=== PATIENT | male | born 1945 | race African-American/Black ===

== ENCOUNTER → 2017-07-29 07:47 | Outpatient (CLI) | payer MEDICARE | END | disposition home or self-care (01) | LOC: D.ECHO 07-25 13:00 → D.RT 07-25 13:30 → D.LAB 07-25 14:30 → D.RAD 07-25 14:45 → D.RT 07:47 | DX: J90 Pleural effusion, not elsewhere classified (principal) ==

== ENCOUNTER 2017-08-06 11:11 | Inpatient (IN) | payer MEDICARE ==
[2017-08-06] MEDS ORDERED: AMOXICILLIN500 M1 PO (11:41)
--- NOTE | 2017-08-06 11:41 | NUR ---
RECIEVED PT VIA WHEELCHAIR ACCOMPANIED BY HOSPTIAL STAFF AND FAMILY MEMBERS. PT IS VERY WEAK. ALERT AND ORIENTED. TRACH WITH TRACH COLLAR SEEN, PER ISADORA WADE PT IS SUPPOSE TO HAVE THAT REMOVED TODAY BY DR. CALDWELL. RESERVE LEFT ARM FOR AVF. RIGHT CHEST HEMOSPLIT SEEN FOR DIALYSIS. ON ROOM AIR. NO IV ACCESS CURRENTLY. ISADORA WADE, DELIVERY MAN AND I ASSISTED PT INTO HOSPTIAL GOWN. PLACED YELLOW ARM BAND ON PT (DUE TO WEAKNESS) AND NON-SKID SOCKS. ISADORA WADE, DELIVERY MAN IN ROOM NOW ADMITTING PT PER POLICY. WILL CONTINUE TO MONITOR AND AWAIT NEW ORDERS.
[2017-08-06] MEDS ORDERED: BUMEX 1 MG TAB1 MG PO (11:42)
[2017-08-06 11:52] VITALS: BP 140/78; BMI 27.5
--- NOTE | 2017-08-06 11:56 | NUR ---
CALLED DR. BLUE OFFICE AND SPOKE WITH SKYLA. INFORMED SKYLA THAT THIS PT IS HERE AND THAT PT WAS SUPPOSE TO HAVE APPT TODAY WITH DR. CALDWELL TO REMOVE TRACH TODAY. SKYLA STATES SHE WILL LET DR. CALDWELL KNOW.
[2017-08-06 12:34] VITALS: BP 140/78
--- NOTE | 2017-08-06 14:49 | NUR ---
THIS NURSE CHANGED PTS DRESSING TO RIGHT CHEST HEMOSPLIT. ATTEMPTED TO SITE PT WITH IV CATHETER TO RIGHT AC X1 STICK THAT WAS NOT SUCCESSFUL. GILBERT BANSAL ATTEMPTED TO LOOK FOR IV SITE BUT COULD NOT FIND ANYTHING. СЕРГЕЙ RAMIREZ, VASCULAR ACCESS NURSE CALLED. WILL CALL AGAIN AND SEE ABOUT GETTING PT SITED.
--- NOTE | 2017-08-06 15:20 | NUR ---
GILBERT GARDNER STATES СЕРГЕЙ VASCULAR ACCESS NURSE WILL BE ON UNIT SHORTLY TO SITE PT WITH IV CATHETER.
--- NOTE | 2017-08-06 16:42 | NUR ---
Dialysis Coordinator: [facility]: JERAMY Montiel Fri/Fri/Fri @ 6:00. IVAN GUEVARA.
--- NOTE | 2017-08-06 17:55 | NUR ---
PT IS CURRENTLY SITTING UP AT BEDSIDE. IS ASSISTING PT WITH DINNER. PTS STATES SHE BROUGHT PTS HOME MEDICATIONS TO FLOOR SO THEY CAN BE PUT IN SYSTEM TO BE REVIEWED BY DOCTOR. INFORMED TO LET ME KNOW WHEN PT IS DONE EATING AND I WILL LOOK OVER MEDICATIONS AND PUT IN SYSTEM.
--- NOTE | 2017-08-06 18:23 | NUR ---
1530- СЕРГЕЙ RAMIREZ, VASCULAR ACCESS NURSE INSERTED IV CATHETER TO PTS RIGHT AC.
[2017-08-06 19:00] VITALS: BP 166/79
[2017-08-06] MEDS ORDERED: RENVELA800 MG PO (19:58)
[2017-08-06] MEDS ORDERED: BACTRIM DS TABL1 TAB PO (19:59)
[2017-08-06] MEDS ORDERED: BUMEX2 MG PO (20:00)
[2017-08-06] MEDS ORDERED: ULTRAM50 MG PO (20:00)
[2017-08-06] MEDS ORDERED: NEPHRO-VITE RX1 TAB PO (20:01)
[2017-08-06] MEDS ORDERED: ISOSORBIDE DINI20 MG PO (20:02)
[2017-08-06] MEDS ORDERED: ZYLOPRIM100 MG PO (20:02)
[2017-08-06] MEDS ORDERED: ROBAXIN-750750 MG PO ×2 (20:03→20:04)
[2017-08-06] MEDS ORDERED: ASPIRIN325 MG PO (20:04)
[2017-08-06] MEDS ORDERED: ROCALTROL0.25 MCG PO (20:05)
[2017-08-06] MEDS ORDERED: HYDRALAZINE HCL10 MG PO (20:06)
--- NOTE | 2017-08-06 23:52 | NUR ---
NURSE ROUNDS 21:00 - PT SITTING ON SIDE OF BED, DEMONSTRATES GENERALIZED WEAKNESS. PT AND PTS BOTH STATE THAT PT SLEEPS IN THE DEPENDENT POSITION WITH HIS LEGS HANGING DOWN R/T PTS BILATERAL CHRONIC LEG PAIN AND CHRONIC BACK PAIN. I SPOKE WITH NUHA MANLEY, PLACEMENT SECRETARY FOR RENAL, TO GET ORDER FOR PTS PRN TRAMADOL PER PT REQUEST. NO OTHER NEEDS AT THIS TIME. BED ALARM IS ON, PT IS TO CALL WHEN NEEDING ANY ASSISTANCT, AND HAS BEEN INSTRUCTED THAT HE CANNOT GET UP UNASSISTED R/T HIS WEAKNESS. PT HAS VERBALLY AGREED TO DO SO, EVEN THOUGH HE STATES HE DOES NOT NEED ANY ASSISTANCE. IS STAYING WITH PT TONIGHT. CONTINUE TO MONITOR PT CLOSELY. BED LOW, CALL LIGHT IN REACH, SIDE RAILS X 2,
[2017-08-07 04:21] VITALS: BP 153/88
[2017-08-07 05:05] LABS: BASOPHILS 0.3 % (0-2); EOSINOPHILS 2.3 % (0-7); HEMATOCRIT 39.4 % (42.0-54.0); HEMOGLOBIN 12.5 g/dL (13.5-17.5); IMMATURE GRANULOCYTES 0.3 % (0-5); MCH 29.3 pg (26.0-34.0); MCHC 31.7 g/dL (31.0-37.0); MCV 92.5 fL (80.0-100.0); MEAN PLATELET VOLUME 11.4 fL (7.4-10.4); MONOCYTES 17.6 % (2-11); NEUTROPHILS 45.5 % (40-80); PLATELET COUNT 208 10x3/uL (130-400); RBC 4.26 10x6/uL (4.20-6.10); RDW 18.1 % (11.5-14.5)
[2017-08-07 05:24] LABS: CALCIUM 9.5 mg/dL (8.5-10.1); CARBON DIOXIDE 26.3 mmol/L (21.0-32.0); CREATININE - SERUM 8.9 mg/dL (0.6-1.3); PHOSPHOROUS 8.7 mg/dL (2.5-4.9); POTASSIUM - SERUM 4.3 mmol/L (3.5-5.1)
--- NOTE | 2017-08-07 06:03 | NUR ---
PT RESTING SITTING ON SIDE OF BED, SLEEPING IN CHAIR AT BEDSIDE. CONTINUE TO MONITOR CLOSELY. BED LOW, CALL LIGHT IN REACH, SIDE RAILS X 1.
--- NOTE | 2017-08-07 07:55 | NUR ---
AM ROUNDS - PT IN BED AND AWAKE AT THIS TIME. SON AT BEDSIDE. SR UP X2. BED AT LOWEST POSITION. CALL HILTON IN USE/REACH. MONITOR SHOWING UNCONT AFIB, HR 125. IV TO LEFT FA, D5NS AT 30CC/HR. NO NEEDS AT THIS TIME. WILL CONTINUE TO MONITOR
--- NOTE | 2017-08-07 07:58 | NUR ---
AM ROUNDS - PT IN BED AND AWAKE AT THIS TIME. PT C/O GENERAL PAIN 08/10. AT BEDSIDE. BED AT LOWEST POSITION. SIDE RAILS UP X2. CALL HILTON IN USE/REACH. PT IS A LEFT ARM RESERVE, AVF. RIGHT CHEST HEMOSPLIT. JOHN BURGOS, SL. WILL ONTINUE TO MONITOR
[2017-08-07 08:00] VITALS: BP 123/60
[2017-08-07 09:49] VITALS: BMI 28.3
--- NOTE | 2017-08-07 11:43 | HP ---
PATIENT: ISAIAS KEANE MEDICAL RECORD: [id number] ACCOUNT: [id number] LOCATION:[facility] D.2104 : 46 ADMISSION DATE: 08/06/17 HISTORY AND PHYSICAL EXAMINATION DATE OF ADMISSION: 08/06/2017 HISTORY OF PRESENT ILLNESS: The patient is a 72-year-old -Scottish male with a history of ESRD secondary to diabetes mellitus and was started on hemodialysis since March of this year. He was initially started on hemodialysis at [facility] in March when he was admitted for acute renal failure and plasma cell dyscrasia. He had a hemodialysis catheter placed at that time. He later had a left forearm AV fistula created by Dr. Cartagena in May 2017, which we have been using on hemodialysis. The patient has been seen by Dr. Hogan in the past for plasma cell dyscrasia on a bone marrow biopsy with 10% plasma cells due to chronic elevation of light chains. He also was seen by Dr. Hogan due to anemia and was on Epogen in his clinic. The patient also has a medical history of diabetes, congestive heart failure, hypertension and obstructive sleep apnea with a tracheostomy. Dr. Danielson with pulmonology follows his trach. Last week, the patient complained of numbness in both hands, which had been progressively worsening over the last 2 weeks. It was thought to be from possible neuropathy. However, this week, the patient complains of weakness in his legs causing difficulty standing and walking. He denies any headache or vision changes, but does complain of some neck pain. No known history of any strokes in the past, weakness is not worse on the left or right, is generally equal on both sides bilaterally. We are admitting him today for weakness of the lower extremities and to rule out CVA and ESRD. The patient may need a neurology or neurosurgery consult. PAST MEDICAL HISTORY: 1. ESRD, dialysis initiated in March [address] with a Hem[address]Split catheter. Dr. Cartagena placed a left forearm AV fistula in May 2017. 2. Congestive heart failure. 3. Diabetes mellitus. 4. Hypertension. 5. History of acute respiratory failure with pneumonia. 6. Osteoarthritis of the knee. 7. Obstructive sleep apnea with a tracheostomy tube. 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 Hogan PAST SURGICAL HISTORY: 1. Percutaneous gastrostomy. 2. Tracheostomy. 3. ORIF, lower extremity leg fracture. 4. HemoSplit catheter by Dr. Ware in March 2017. FAMILY HISTORY: No known family history of any kidney disease or respiratory disease. SOCIAL HISTORY: Denies ever smoking in the past and does not currently smoke. Denies any alcohol or illicit drug use. CURRENT MEDICATIONS: Renvela 800 mg 3 tabs t.i.d. with meals, Bumex 2 mg p.o. on nondialysis days, Imdur 10 mg p.o. b.i.d.; metoprolol 50 mg half a tab HISTORY AND PHYSICAL [id number] ISAIAS KEANE b.i.d., hold before dialysis; codeine cough syrup q.6 p.r.n., Venofer 50 mg IV push weekly with dialysis, Epogen 7400 units IV push 3 times a week with dialysis. ALLERGIES: No known drug allergies. REVIEW OF SYSTEMS: Positive for weakness in the lower extremities, also with numbness. The patient has numbness in his hands, difficulty standing and walking, positive for neck pain. The patient has a tracheostomy tube with chronic cough. All other review of systems negative. PHYSICAL EXAMINATION: VITAL SIGNS: Stable. GENERAL: Adult male, in no acute distress. HEAD: Normocephalic and atraumatic. EYES: Pupils are equal, round and react to light and accommodation. ENT: Oropharynx is clear. No erythema, no exudate. NECK: Supple. No lymphadenopathy. Tracheostomy intact with trach collar. HEART: Regular rate and rhythm. No murmur, rub or gallop. LUNGS: Clear bilaterally. No wheezes, rales or crackles. ABDOMEN: Soft, nontender, active bowel sounds times 4. EXTREMITIES: No amputations or deformities. Numbness noted in bilateral lower extremities and hands, some edema noted in the left hand, +1 edema in lower extremities. Left arm AV fistula positive thrill and bruit. ASSESSMENT AND PLAN: 1. Lower extremity weakness and numbness. The patient states this started yesterday and has continued to get worse. Last week, his hands began to get numb. He complains of numbness in his hands in the past. He has never had a cerebrovascular accident or transient ischemic attack in the past. Weaknesses is not unilateral, it is bilateral. No difficulty speaking, no slurred speech. The patient does complain of some neck pain. No recent injuries. We will check a CT of the head and C-spine, may also need to check L-spine as well. The patient will likely need neurology consult depending on test, may need neurosurgery consult as well. 2. End-stage renal disease. Continue hemodialysis 3 times a week. 3. Hypertension. Continue oral antihypertensive meds. 4. Renal osteodystrophy. Continue renal diet and binders with meals. 5. Diabetes mellitus. We will check blood sugars a.c. and h.s., cover with sliding scale as needed. TRANSINT:[id number] Voice Confirmation ID: [id number] DOCUMENT ID: [id number] Dictated By: NUHA MANLEY I have interviewed/examined the above patient and agree with these documented findings. HISTORY AND PHYSICAL [id number] ISAIAS KEANE DAVID MD at 1143 at 1125 CC: [id number] DICTATION DATE: 08/06/17 1121 COMPUTER NETWORKING INSTRUCTOR ADJUNCT: 08/06/[address] [facility] [address] [place] [address]
[2017-08-07 12:00] VITALS: BP 128/83
[2017-08-07 16:00] VITALS: BP 132/61
--- NOTE | 2017-08-07 16:07 | NUR ---
PLACED SCD IN PT'S ROOM. OT DOES NOT WANT TO PUT THEM ON AT THIS TIME.
--- NOTE | 2017-08-07 16:54 | NUR ---
Patient Name: ISAIAS KEANE Admission Status: Urgent Accout number: [id number] Admission Date: 08-06-2017 : 1945 Admission Diagnosis:WEAKNESS Attending: MALINI LAWRENCE Current LOS: 1 Anticipated DC Date: Planned Disposition: Home with Home Health Primary Insurance: MEDICARE A & B PLANNED EXTERNAL PROVIDER: [facility] Discharge Planning Comments: * Is the patient Alert and Oriented? Yes 0 * How many steps to enter\exit or inside your home? 5 0 * PCP DR. ORELLANA, [facility] 0 * Pharmacy MD MAIL ORDER OR [facility] ON [address] 0 * Preadmission Environment Home with Family 0 * ADLs Independent 0 * Equipment Oxygen 0 * Other Equipment HOME AND PORTABLE OXYGEN FROM A COMPANY IN [place] 0 * List name and contact numbers for known caregivers / representatives who currently or will assist patient after discharge: GIACOMO GARCIA, GIRLFRIEND, 0 * Community resources currently utilized Other 0 * Please name any agencies selected above. OUTPATIENT DIALYSIS, M/W/F, 0630AM, [facility], GIRLFRIEND DRIVES 0 * Additional services required to return to the preadmission environment? No 0 * Can the patient safely return to the preadmission environment? Yes 0 * Has this patient been hospitalized within the prior 30 days at any hospital? No 0 CM RECEIVED HOME HEALTH ORDER, MET WITH PT IN ROOM TO DISCUSS DISCHARGE PLANNING AND NEEDS. PT REPORTS LIVING AT HOME INDEPENDENTLY WITH HIS GIRLFRIEND. PT HAS HOME AND PORTABLE OXYGEN FROM A COMPANY IN [place]. PT HAS NO OUTSIDE SERVICES ASSISTING IN THE HOME. PT GOES TO DIALYSIS MWF, [address] [facility], HIS GIRLFRIEND DRIVES. CM DISCUSSED AVAILABILITY OF HOME HEALTH, REHAB SERVICES AND MEDICAL EQUIPMENT. PT WILL ACCEPT HOME HEALTH, CHOSE [facility], CHOICE SIGNED, REPORTS GIRLFRIEND WILL PICK HIM UP FOR DISCHARGE HOME. PT'S GIRLFRIEND REPORTS SOMEONE FROM THE BUSINESS OFFICE HAS TALKED TO PT ABOUT MEDICAID MEDICARE DOES NOT COVER THE ENTIRE BILL; [facility]. CM EXPLAINED THAT PT WILL NEED TO CONSENT TO [facility] TRANSFER FOR [facility] TO [facility] ANY PART OF THE BILL; CM OFFERED TO CALL THE [facility] AND PLACE PT ON THE TRANSFER LIST. PT REPORTS HE HAS BEEN THERE ONCE AND DOES NOT WANT CM TO PLACE PT ON THE [facility] CM CALLED [facility], PROVIDED REFERRAL TO [place], ; CM FAXED REFERRAL TO [facility] AT [phone]. FOR DISCHARGE WITH HOME HEALTH, NOTIFY [facility], , FAX DISCHARGE INFORMATION TO [facility] AT [phone]. Tax Economist: Abilio Gaona
[2017-08-07 19:00] VITALS: BP 146/77
[2017-08-08] VITALS: BP 101/66
--- NOTE | 2017-08-08 00:46 | NUR ---
FORESTRY HUNTER AT BEDSIDE TO OBTAIN VITALS, CALL LIGHT IN REACH. WILL CONTINUE WITH PLAN OF CARE.
[2017-08-08 04:00] VITALS: BP 122/69
[2017-08-08 04:55] LABS: BASOPHILS 0.1 % (0-2); EOSINOPHILS 2.6 % (0-7); HEMATOCRIT 38.1 % (42.0-54.0); HEMOGLOBIN 12.2 g/dL (13.5-17.5); IMMATURE GRANULOCYTES 0.1 % (0-5); LYMPHOCYTES 25.5 % (15-50); MCH 29.4 pg (26.0-34.0); MCV 91.8 fL (80.0-100.0); MEAN PLATELET VOLUME 11.3 fL (7.4-10.4); MONOCYTES 13.6 % (2-11); NEUTROPHILS 58.1 % (40-80); PLATELET COUNT 234 10x3/uL (130-400); RBC 4.15 10x6/uL (4.20-6.10); RDW 17.8 % (11.5-14.5); WBC 7.8 10x3/uL (4.8-10.8)
[2017-08-08 05:22] LABS: ANION GAP 22.3 mmol/L (8-16); CALCIUM 9.5 mg/dL (8.5-10.1); CARBON DIOXIDE 23.9 mmol/L (21.0-32.0); POTASSIUM - SERUM 4.2 mmol/L (3.5-5.1)
[2017-08-08 05:33] LABS: CREATININE - SERUM 11.7 mg/dL (0.6-1.3); PHOSPHOROUS 10.5 mg/dL (2.5-4.9)
[2017-08-08 08:00] VITALS: BP 127/73
--- NOTE | 2017-08-08 08:13 | NUR ---
AM ROUNDS - PT IN BED C/O PAIN 9/10 IN SHOULDERS AND ARMS. AT BEDSIDE. RIGHT CHEST HEMO FOR DIALYSIS. RESERVE LEFT ARM, AVF. BED AT LOWEST POSITION. CALL HILTON IN USE/REACH. SIDE RAILS UP X2. WILL CONTINUE TO MONITOR
[2017-08-08 12:00] VITALS: BP 115/76
[2017-08-09] VITALS (8 sets, daily range): BP systolic 117–149; BP diastolic 51–78
--- NOTE | 2017-08-09 00:12 | NUR ---
ASSESSMENT UNCHANGED. VSS, AFEBRILE. RESP EVEN UNLABORED. NO NEEDS VOICED. WILL CONT TO MONITOR.
[2017-08-09 06:24] LABS: BASOPHILS 0 % (0-2); EOSINOPHILS 0 % (0-7); HEMATOCRIT 38.6 % (42.0-54.0); HEMOGLOBIN 12.3 g/dL (13.5-17.5); IMMATURE GRANULOCYTES 0.1 % (0-5); MCH 29.4 pg (26.0-34.0); MCHC 31.9 g/dL (31.0-37.0); MCV 92.1 fL (80.0-100.0); MEAN PLATELET VOLUME 11.1 fL (7.4-10.4); MONOCYTES 1.9 % (2-11); RBC 4.19 10x6/uL (4.20-6.10); RDW 17.7 % (11.5-14.5); WBC 6.7 10x3/uL (4.8-10.8)
[2017-08-09 06:25] LABS: PLATELET COUNT 183 10x3/uL (130-400)
--- NOTE | 2017-08-09 06:30 | EMG ---
PATIENT:ISAIAS KEANE DATE OF SERVICE: 08/06/17 MEDICAL RECORD: [id number] DATE OF : [birth year] LOCATION:D.210 D.M2 ADMISSION DATE: 08/06/17 REFERRING PHYSICIAN: MALINI LAWRENCE MD INTERPRETING PHYSICIAN: TANIYA NICOLE MD DATE OF SERVICE: 08/08/2017 Referred by myself as an inpatient, currently in room 2104 ELECTROMYOGRAPHIC DATA: Electromyographic examination is limited to both upper extremities. In the right upper extremity, right median motor stimulation elicits a compound motor action potential with a distal latency of 5.2 milliseconds, peak amplitude of 5 millivolts, and calculated conduction velocity of 46 meters per second. Right ulnar motor stimulation elicits a compound motor action potential with a distal latency of 4.6 milliseconds, peak amplitude of only 800 microvolts and calculated conduction velocity of 43 meters per second. Right ulnar motor stimulation across the elbow fails to elicit evidence of conduction block at this level. Antidromic right median sensory stimulation elicits a response with a distal latency of 4.5 milliseconds, amplitude of 3 microvolts and a calculated conduction velocity of 50 meters per second. Antidromic right ulnar sensory stimulation elicits no reliable response. The right median F wave is absent. In the left upper extremity, left median motor stimulation elicits a compound motor action potential with a distal latency of 4.3 milliseconds, peak amplitude of 3 millivolts, and calculated conduction velocity of 49 meters per second. Left ulnar motor stimulation elicits a compound motor action potential with a distal latency of 3.8 milliseconds, peak amplitude of 1 millivolt and calculated conduction velocity of 40 meters per second. Left ulnar motor stimulation across the elbow fails to elicit evidence of conduction block at this level. Antidromic left median sensory stimulation elicits a response with a distal latency of 3.9 milliseconds, amplitude of 2 microvolts and calculated conduction velocity of 45 meters per second. Antidromic left ulnar sensory stimulation elicits no reliable response. The left median F wave is absent. Needle electrode examination is limited to both upper extremities as well. Muscles interrogated include the abductor pollicis brevis, first dorsal interosseous, abductor digiti minimi, pronator teres, biceps brachii, triceps and deltoid. There is increased insertional activity in the first dorsal interosseous and abductor digiti minimi on the right with a ____ discharges seen primarily in the first dorsal interosseous. Spontaneous fasciculation potentials are observed in the deltoids bilaterally, right greater than left. Fasciculations and other spontaneous activity are not seen in other muscles interrogated. No fibrillation potentials are observed. The motor unit potential morphology and the pattern of motor unit potential firing and recruitment demonstrates a severe down number of motor units firing at an increased rate consistent with decreased recruitment in the first dorsal interosseous and, abductor digiti minimi on the right as well as in the biceps brachii and deltoids bilaterally. INTERPRETATION: Electromyographic examination of both upper extremities is complex with evidence of ulnar mononeuropathy bilaterally, right greater than left, severe and chronic in the right upper extremity. There are also ELECTROMYGRAM/NERVE CONDUCTION [id number] FANNING,ISAIAS neuropathic changes seen in the upper cervical musculature particularly in the deltoids, but also to a lesser extent of the biceps brachii bilaterally. Clinical correlation is required. TRANSINT:[id number] Voice Confirmation ID: [id number] DOCUMENT ID: [id number] TANIYA NICOLE MD at 0630 CC: [id number] DICTATION DATE: 08/08/17 09 INDUSTRIAL ENG: 08/08/17 1124 ADM IN [facility] [address] [place] [address]
[2017-08-09 06:42] LABS: ANION GAP 19.5 mmol/L (8-16); BILIRUBIN - TOTAL 0.6 mg/dL (0.2-1.3); CARBON DIOXIDE 23.5 mmol/L (21.0-32.0); CREATININE - SERUM 10.2 mg/dL (0.6-1.3); PROTEIN - SERUM 8.3 g/dL (6.4-8.2)
[2017-08-09 06:44] LABS: PHOSPHOROUS 9.1 mg/dL (2.5-4.9)
--- NOTE | 2017-08-09 08:17 | NUR ---
0720-AM ROUNDING DONE WITH PATIENT BEING NPO FOR SURGERY THIS AM. RESERVE LEFT ARM WITH AVF, + BRUIT AND THRILL. SALINE LOCK SEEN TO RIGHT AC. TRACH COLLAR SEEN, PATIENT IS ABLE TO TALK AROUND THE TRACH. RIGHT HEMISPLIT SEEN WITH C/D/I DRESSING. ON ROOM AIR. 0815-STAT EKG DONE OR CREW IS HERE TO TAKE PATIENT.
--- NOTE | 2017-08-09 09:38 | NUR ---
PATIENT HAD TRACH THAT WAS USED ANESTHESIA PLACED A 6MM ENDOTRACHEAL TUBE, TRACH TUBE WAS CLEANED AND WILL BE PUT BACK AFTER SURGERY, DR GALLO SECURED ET TUBE, CEDRIC.
--- NOTE | 2017-08-09 11:54 | NUR ---
RETURNS FROM RR WITH DRESSING TO RIGHT SIDE NECK. I DATED IT FOR TODAY. WILL MONITOR.
--- NOTE | 2017-08-09 17:16 | NUR ---
ASSISTED TO SIDE OF THE BED SO HE CAN EAT SUPPER. PROPPED WITH PILLOWS. DENIES ANY NEEDS AT PRESENT TIME. WILL CONTINUE TO MONITOR.
--- NOTE | 2017-08-09 17:41 | NUR ---
STILL WITH NO SOFT CERVICAL COLLAR THAT WAS SUPPOSE TO BE PLACED IN PACU. ASKED YASH ALMANZARCLAIMS AGENT RIGHT OF WAY TO GET ONE FOR ME.
--- NOTE | 2017-08-09 18:06 | NUR ---
SOFT CERVICAL COLLAR PLACED ON PATIENT.
--- NOTE | 2017-08-09 19:19 | NUR ---
PT SITTING UP IN BED DENIES NEEDS AT THIS TIME WILL CONTINUE TO MONITOR
[2017-08-10] VITALS (9 sets, daily range): BP systolic 127–150; BP diastolic 50–84
[2017-08-10 04:38] LABS: BASOPHILS 0 % (0-2); EOSINOPHILS 0.1 % (0-7); HEMATOCRIT 37.7 % (42.0-54.0); IMMATURE GRANULOCYTES 0.1 % (0-5); LYMPHOCYTES 12.3 % (15-50); MCH 29.2 pg (26.0-34.0); MCHC 31.8 g/dL (31.0-37.0); MCV 91.7 fL (80.0-100.0); MEAN PLATELET VOLUME 11.2 fL (7.4-10.4); MONOCYTES 10.3 % (2-11); NEUTROPHILS 77.2 % (40-80); PLATELET COUNT 198 10x3/uL (130-400); RBC 4.11 10x6/uL (4.20-6.10); RDW 17.5 % (11.5-14.5)
[2017-08-10 04:41] LABS: WBC 11.3 10x3/uL (4.8-10.8)
[2017-08-10 04:53] LABS: ANION GAP 20.6 mmol/L (8-16); CALCIUM 9.4 mg/dL (8.5-10.1); CARBON DIOXIDE 22.5 mmol/L (21.0-32.0); CREATININE - SERUM 12.7 mg/dL (0.6-1.3); POTASSIUM - SERUM 5.1 mmol/L (3.5-5.1)
[2017-08-10 04:54] LABS: PHOSPHOROUS 10.7 mg/dL (2.5-4.9)
--- NOTE | 2017-08-10 07:57 | NUR ---
Patient is alert, sitting on side of bed with soft c-collar intact. States in pain at level 9, pain medication given. Call light within reach, is at bedside. Will continue to monitor.
--- NOTE | 2017-08-10 13:08 | NUR ---
PATIENT IS SITTING ON SIDE OF BED WITH SOFT CERVICAL COLLAR IN USE ORDERED. DENIES NEEDS AT PRESENT TIME. TRACH COLLAR SEEN. WILL FOLLOW.
--- NOTE | 2017-08-10 16:42 | NUR ---
Patient laying in bed, alert. Water offered but was refused. Call light in reach.
--- NOTE | 2017-08-10 17:55 | NUR ---
Patient sitting up at bedside, denies any needs at this time. Girlfriend is at bedside. Call light in reach.
[2017-08-11] VITALS (9 sets, daily range): BP systolic 130–164; BP diastolic 70–93
[2017-08-11 04:50] LABS: BASOPHILS 0 % (0-2); EOSINOPHILS 0 % (0-7); HEMATOCRIT 37.2 % (42.0-54.0); HEMOGLOBIN 11.8 g/dL (13.5-17.5); IMMATURE GRANULOCYTES 0.2 % (0-5); LYMPHOCYTES 9.3 % (15-50); MCH 29.1 pg (26.0-34.0); MCHC 31.7 g/dL (31.0-37.0); MCV 91.6 fL (80.0-100.0); MEAN PLATELET VOLUME 11.9 fL (7.4-10.4); MONOCYTES 8.2 % (2-11); NEUTROPHILS 82.3 % (40-80); PLATELET COUNT 210 10x3/uL (130-400); RBC 4.06 10x6/uL (4.20-6.10); RDW 17.5 % (11.5-14.5); WBC 9.3 10x3/uL (4.8-10.8)
[2017-08-11 07:22] LABS: ANION GAP 25.8 mmol/L (8-16); CALCIUM 9.1 mg/dL (8.5-10.1); CARBON DIOXIDE 19.8 mmol/L (21.0-32.0); POTASSIUM - SERUM 5.6 mmol/L (3.5-5.1)
--- NOTE | 2017-08-11 10:15 | NUR ---
Patient is at dialysis at this time.
--- NOTE | 2017-08-11 12:14 | NUR ---
PT TRANSFERED BACK TO ROOM 2103, VIA BED, RESP EVEN AND UNLABORED. PT DENIES ANY NEEDS AT THIS TIME. CALL LIGHT IN REACH, NAD NOTED, WILL CONTINUE TO MONITOR.
--- NOTE | 2017-08-11 12:33 | NUR ---
Patient Name: ISAIAS KEANE Encounter No: [id number] : 1945 Primary Insurance: MEDICARE A & B Anticipated DC Date: Planned Disposition: Inpatient Rehab External Planned Provider: INPATIENT REHAB DCP follow-up note: CM RECEIVED INPATIENT REHAB PRESCREENING ORDER, MET WITH PT IN ROOM, DISCUSSED REHAB OPTIONS. PT WOULD LIKE TO STAY AT INPATIENT REHAB IF POSSIBLE SO HE CAN CONTINUE DIALYSIS WHILE IN REHAB. CM WAITING ADMISSION DETERMINATION FROM INPATIENT REHAB. Abilio Gaona, CASE MANAGEMENT
--- NOTE | 2017-08-11 14:32 | NUR ---
Rehab Prescreening Consult recieved and the chart has been reviewed. This patient meets IRF criteria and has expressed the desire to participate in the required therapy. He will be accepted when the physician feels he is medically stable for discharge to rehab. Discussed with the CM Terry Gaona. Olive Jordan RN Clinical Liaison, Rehab
--- NOTE | 2017-08-11 16:11 | NUR ---
Patient sitting up on side of bed eating a snack, spouse at bedside. Patient denies any needs at this time. Call light within reach.
--- NOTE | 2017-08-11 18:35 | NUR ---
Patient Name: ISAIAS KEANE Admission Status: Urgent Accout number: [id number] Admission Date: 08-06-2017 : 1945 Admission Diagnosis:WEAKNESS Attending: MALINI LAWRENCE Current LOS: 5 Anticipated DC Date: 08-12-2017 Planned Disposition: Inpatient Rehab Primary Insurance: MEDICARE A & B PLANNED EXTERNAL PROVIDER: [facility] INPATIENT REHAB Discharge Planning Comments: CM SPOKE TO [facility] OF INPATIENT REHAB, THEY PLAN TO ACCEPT PT TOMORROW, 08-12-17, FOR REHAB. PT NOTIFIED, IN AGREEMENT WITH DISCHARGE TO INPATIENT REHAB. IMPORTANT MESSAGE FROM MEDICARE PROVIDED AND EXPLAINED. NOTIFY [facility] INPATIENT REHAB WHEN DISCHARGE ORDERS RECEIVED; REHAB TO CONTACT [facility] 2 NURSE WITH ROOM NUMBER WHEN READY TO ACCEPT PT AND NURSE REPORT. Rn Medicare: Abilio Gaona
[2017-08-12] VITALS: BP 171/102
[2017-08-12 04:00] VITALS: BP 161/88
[2017-08-12 05:00] LABS: BASOPHILS 0 % (0-2); EOSINOPHILS 0 % (0-7); HEMATOCRIT 36.6 % (42.0-54.0); HEMOGLOBIN 11.6 g/dL (13.5-17.5); IMMATURE GRANULOCYTES 0.1 % (0-5); LYMPHOCYTES 9.6 % (15-50); MCH 28.9 pg (26.0-34.0); MCHC 31.7 g/dL (31.0-37.0); MEAN PLATELET VOLUME 10.5 fL (7.4-10.4); MONOCYTES 9.3 % (2-11); RBC 4.02 10x6/uL (4.20-6.10); RDW 17.2 % (11.5-14.5); WBC 8.4 10x3/uL (4.8-10.8)
[2017-08-12 05:11] LABS: PLATELET COUNT 159 10x3/uL (130-400)
[2017-08-12 05:28] LABS: ANION GAP 21.9 mmol/L (8-16); CALCIUM 9.8 mg/dL (8.5-10.1); CARBON DIOXIDE 24.1 mmol/L (21.0-32.0); CREATININE - SERUM 12.6 mg/dL (0.6-1.3); PHOSPHOROUS 9.7 mg/dL (2.5-4.9)
--- NOTE | 2017-08-12 07:34 | NUR ---
RECIEVED REPORT ON PATIENT, PATIENT IS ALERT AND ORIENTED AT THIS TIME. SITTING ON SIDE OF BED. PATIENT HAS A R AC IV THAT IS SL AT THIS TIME. DR LAWRENCE AT BEDSIDE AT THIS TIME. PATIENT IS REQUESTING TO GO HOME. BED IS LOW AND LOCKED AT THIS TIME. CALL LIGHT IN REACH. WILL CONT TO MONITOR. CPOC
[2017-08-12 08:00] VITALS: BP 129/70
--- NOTE | 2017-08-12 09:00 | NUR ---
MORNING MEDS GIVEN. NO ISSUES. DENIES ANY NEEDS. CPOC
--- NOTE | 2017-08-12 09:37 | NUR ---
Nutrition Follow Up: Pt is eating 72% meal avg on a renal ADA diet. Wt stable. +BM 08/07/17 - no BM x 5 days. Labs reviewed. Meds noted including Bumex. Rec continue current diet. RD following.
--- NOTE | 2017-08-12 11:30 | NUR ---
PATIENT SITTING ON SIDE OF BED, EATING LUNCH. NO INSULIN GIVEN PER SLIDING SCALE. PATIENT DENIES ANY NEEDS. CPOC
[2017-08-12 12:00] VITALS: BP 130/76
--- NOTE | 2017-08-12 13:10 | NUR ---
PATIENT SITTING ON SIDE OF BED, DENIES ANY NEEDS. CPOC
[2017-08-12] MEDS ORDERED: MUCINEX600 MG PO (13:48)
[2017-08-12] MEDS ORDERED: DECADRON4 MG PO (13:49)
[2017-08-12] MEDS ORDERED: ALBUTEROL2.5 MG/3 M INH ×2 (13:50→13:51)
[2017-08-12] MEDS ORDERED: RENAGEL800 MG PO (13:51)
[2017-08-12] MEDS ORDERED: HUMALOG 30100 UNITS/ SC (13:51)
--- NOTE | 2017-08-12 15:52 | NUR ---
PATIENT IV DC WITH CATH TIP INTACT. WAITING ON ROOM FOR REHAB
--- NOTE | 2017-08-12 16:00 | NUR ---
REPORT GIVEN TO CATHY, IN REHAB. PATIENT WILL BE GOING TO ROOM 0684I
--- NOTE | 2017-08-12 16:18 | NUR ---
PATIENT FSBS 141. NO INSULIN REQUIRED
--- NOTE | 2017-08-12 16:44 | NUR ---
PATIENT GONE TO REHAB. PAPERWORK SIGNED, INSTRUCTIONS GIVEN.
--- NOTE | 2017-08-13 06:08 | DS ---
PATIENT:ISAIAS KEANE :[birth year] MEDICAL RECORD: [id number] DISCHARGE SUMMARY ADMISSION DATE: 08/06/17 DISCHARGE DATE: 08/12/17 HISTORY OF PRESENT ILLNESS: Mr. Keane is a 72-year-old black male with end-stage renal disease and chronic tracheostomy, has been stable following transfer into [facility] with no recent hospitalizations. Current history, days to month prior to admission with development of progressive weakness, which worsened at home and worsened in his upper extremities and was admitted by Dr. Mendoza for weakness. HOSPITAL COURSE: The patient's initial CT was negative. He had a C-spine that revealed a degenerative disease. An MRI of the cervical spine revealed severe narrowing at C3 and C4, seen by Dr. Driver who felt that this was definitely cervical radiculopathy confirmed by nerve conduction, seen by Dr. Soler, taken to surgery where he had a cervical laminectomy done with screws and plates. Postoperatively, he did well with gain in both upper and lower extremity strength and tolerated dialysis well and will now be transferred to rehab for continued postop recovery. DISCHARGE DIAGNOSES: 1. 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 2. Weakness secondary to the above. 3. Chronic tracheostomy followed by pulmonary. 4. End-stage renal disease, chronic dialysis. PLAN: The patient will be transferred to rehab. We will follow him there. He will continue his dialysis 3 times weekly and his current meds. He will be followed by pulmonary with eventual plan to get his tracheostomy out and then follow up with Dr. Soler as an outpatient. His current meds and diet will stay the same. TRANSINT:[id number] Voice Confirmation ID: [id number] DOCUMENT ID: [id number] MALINI LAWRENCE MD at 0608 CC: [id number] DICTATION DATE: 08/12/17 0746 ASSEMBLER WATCH TRAIN: 08/12/17 2157 DIS IN 08/12/17 [id number] [place] [address]
--- NOTE | 2017-08-19 16:50 | CN ---
PATIENT NAME:ISAIAS KEANE MEDICAL RECORD: [id number] : 47 LOCATION:D. D.2104 ADMIT DATE: 08/06/17 ACCOUNT: [id number] CONSULTING PHYSICIAN: MARVIN BRAVO MD REFERRING PHYSICIAN: MALINI LAWRENCE MD DATE OF CONSULTATION: 08/09/2017 CONSULT REQUESTED BY: Armando Jones MD REASON FOR CONSULTATION: Decannulation of the tracheostomy tube. HISTORY OF PRESENT ILLNESS: Mr. Keane is a 72-year-old gentleman who has a history of chronic respiratory failure. He was trached in 2012 with COPD, obstructive sleep apnea and empyema at that state. He was seen in Dr. Danielson's office and they were working him up to decannulate him, but the patient did not show up for his appointment. The patient came into the ER and admitted with generalized weakness, especially on the right side. He underwent anterior cervical discectomy and fusion by Dr. Soler. He is also seen by Dr. Driver regarding muscle weakness and weakness of the right upper arm. REVIEW OF SYSTEMS: Mainly in the history of present illness. PAST MEDICAL HISTORY: 1. History of chronic respiratory failure. 2. COPD. 3. Obstructive sleep apnea. 4. Diabetes mellitus. 5. End-stage renal disease. PAST SURGICAL HISTORY: 1. He had a cholecystectomy. 2. He had tracheostomy in the past. ALLERGIES: There are no known drug allergies. MEDICATIONS: [employer] was reviewed. PERSONAL AND SOCIAL HISTORY: The patient is an ex-smoker. He is a nondrinker. FAMILY HISTORY: Noncontributory. PHYSICAL EXAMINATION: GENERAL: Now, the patient is lying comfortably. He is not in acute distress. VITAL SIGNS: The blood pressure is 144/70, pulse is 94, respirations 17, temperature 97.7, SpO2 of 97% on room air. HEENT: Conjunctivae pink, sclerae nonicteric. NECK: Supple. No JVD. CHEST: Chest excursion is minimal on both sides. There are no wheezes, no rales. The trach is in place. HEART: Rhythm regular, normal sound, no murmur. ABDOMEN: Soft. Bowel sounds present. No hepatosplenomegaly. RECTAL: Deferred. EXTREMITIES: No cyanosis, no clubbing, no pedal edema. SKIN: Warm, normal turgor. CONSULT REPORT [id number] ISAIAS KEANE CENTRAL NERVOUS SYSTEM: The patient is awake and alert. There is no obvious cranial nerve abnormality. The gait was not tested. LABORATORY DATA: CBC: WBC 6.7, hemoglobin 12.3, hematocrit 38.6, platelet count is 183. Chemistry: Sodium 139, potassium is 5, bicarbonate 23.5, BUN is 61, creatinine 10.2. IMPRESSION: 1. Status post tracheostomy in 2012. 2. History of obstructive sleep apnea. 3. Chronic obstructive pulmonary disease. 4. Chronic respiratory failure. 5. End-stage renal disease. 6. History of congestive heart failure. 7. Now status post anterior cervical discectomy and fusion for cervical myelopathy with predominant shoulder girdle weakness. RECOMMENDATION: I will keep the tracheostomy tube when the patient is over with this acute process. He is now status post cervical spine surgery by Dr. Soler. Albuterol/ipratropium nebulizer. When the patient is stable, consider the decannulation. TRANSINT:[id number] Voice Confirmation ID: [id number] DOCUMENT ID: [id number] MARVIN BRAVO MD at 1650 CC: [id number] DICTATION DATE: 08/09/17 1442 ANCILLARY SERVICES MANAGER THERAPY: 08/10/17 0114 DIS IN 08/12/17 [facility] [address] [place] [address]
--- NOTE | 2017-09-02 14:31 | OP ---
PATIENT NAME: ISAIAS KEANE MEDICAL RECORD: [id number] :47 LOCATION:D. 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 PROCEDURE: Anterior cervical discectomy and fusion at C3-C4 with removal of osteophytes and decompression of spinal cord, Zavation anterior cervical plate and screws, 8 mm interbody cage with Biocell stem cell. DESCRIPTION OF TECHNIQUE: After induction of general endotracheal anesthesia, the patient was positioned supine on the operating table. Neck was prepped and draped in usual sterile fashion. Fluoroscopic x-ray and freer localized the C3-C4 interspace. A transverse skin incision was carried out at the C3-C4. The platysma was divided with Bovie cautery. Using blunt and sharp dissection with Metzenbaum scissors, I proceeded in an avascular plane medial to the carotid sheath. The C3-C4 interspace was identified with fluoroscopic x-ray and spinal needle. The longus colli muscles were elevated from the bodies of C3 and C4. Following this, a self-retaining retractor was placed deep to the longus colli muscles. [place] distracting pins were placed at the bodies of the C3 and C4. Disc space was incised with a #11 blade. A combination of curettes and pituitary rongeurs were used to remove the disc material from the C3-C4 interspace. Following this, there was an obvious hole discovered within the posterior longitudinal ligament, where large disc herniation was removed through this hole. The posterior longitudinal ligament was removed in its entirety with a #2 Cloward rongeurs. Following this, the dura was decompressed well. Meticulous hemostasis was maintained throughout the wound. The wound was irrigated with copious amounts of Ancef irrigant solution. An 8-mm interbody cage was placed in the disc space under distraction. Prior to this, it was filled with Biocell stem cells. Next, a 17-mm VIP plate and screws was used to span the C3-C4 interspace. Locking cams were tightened down over the screw heads. Meticulous hemostasis was maintained throughout the wound. The wound was irrigated with copious amounts of Ancef irrigant solution. The platysma and subdermal layer were closed with interrupted 3-0 Vicryl suture, the skin was reapproximated with Steri-Strips and benzoin. A sterile dressing was applied to the wound. The patient was awakened in good condition and taken to the recovery. All counts were reported as correct. Estimated blood loss was minimal. TRANSINT:[id number] Voice Confirmation ID: [id number] DOCUMENT ID: [id number] ZARA GALLO MD at 1431 CC: [id number] DICTATION DATE: 08/19/17 1357 [employer] BUSINESS DEVELOPER: 08/19/17 1741 DIS IN 08/12/17 [id number] [place] [address]
== END 2017-08-12 17:43 | DRG 471 ==
LOC: D.M2 11:11
PROVIDERS: Internal Medicine Nephrology; Neurological Surgery; ADMIT Internal Medicine Nephrology
PROC: 0RT30ZZ Resection of Cervical Vertebral Disc, Open Approach (ICD-10-PCS; principal; 2017-08-09 08:00)
PROC: 0RG10A0 Fusion of Cervical Vertebral Joint with Interbody Fusion Device, Anterior Approach, Anterior Column, Open Approach (ICD-10-PCS; 2017-08-09 08:00)
DX: M48.02 Spinal stenosis, cervical region (principal); N18.6 End stage renal disease; I13.2 Hypertensive heart and chronic kidney disease with heart failure and with stage 5 chronic kidney disease, or end stage renal disease; R53.1 Weakness; E11.22 Type 2 diabetes mellitus with diabetic chronic kidney disease; I50.9 Heart failure, unspecified; Z99.2 Dependence on renal dialysis; G47.33 Obstructive sleep apnea (adult) (pediatric); N25.0 Renal osteodystrophy; Z93.0 Tracheostomy status; G56.21 Lesion of ulnar nerve, right upper limb

== ENCOUNTER 2017-08-12 17:01 | Inpatient (IN) | payer MEDICARE ==
[~2017-08-12] VITALS: Ht 190.5 cm; Wt 97.0 kg
[~2017-08-12 17:01] MED LIST: ALBUTEROL2.5 MG/3 M INH; AMOXICILLIN500 M1 PO; ASPIRIN325 MG PO; BACTRIM DS TABL1 TAB PO; BUMEX 1 MG TAB1 MG PO; BUMEX2 MG PO; DECADRON4 MG PO; HUMALOG 30100 UNITS/ SC; HYDRALAZINE HCL10 MG PO; ISOSORBIDE DINI20 MG PO; MUCINEX600 MG PO; NEPHRO-VITE RX1 TAB PO; RENAGEL800 MG PO; RENVELA800 MG PO; ROBAXIN-750750 MG PO; ROCALTROL0.25 MCG PO; ULTRAM50 MG PO; ZYLOPRIM100 MG PO
[2017-08-12 18:22] VITALS: BP 166/88; BMI 27.5
--- NOTE | 2017-08-12 19:20 | NUR ---
FRIEND TALKS TO PT AT BEDSIDE.
[2017-08-12 20:04] VITALS: BP 137/68
--- NOTE | 2017-08-12 20:10 | NUR ---
ASSISTED PT TO BATHROOM AND BACK TO BED.
--- NOTE | 2017-08-12 22:10 | NUR ---
PT SEAT ON SIDE OF BED, REST HEAD ON PILLOW, STATE FEEL MORE COMFORTABLE SLEEP ON THIS POSITION, DUE TO NECK SURGERY.
--- NOTE | 2017-08-13 03:20 | NUR ---
SEATED ON BEDSIDE, LEANING ON PILLOWS. RESTING QUIETLY. PATIENT EARLIER INSISTED THIS IS THE ONLY WAY HE CAN SLEEP COMFORTABLY.
[2017-08-13 06:34] LABS: BASOPHILS 0 % (0-2); EOSINOPHILS 0 % (0-7); HEMOGLOBIN 11.8 g/dL (13.5-17.5); IMMATURE GRANULOCYTES 0.2 % (0-5); MCHC 31.9 g/dL (31.0-37.0); MCV 90.9 fL (80.0-100.0); MEAN PLATELET VOLUME 12.1 fL (7.4-10.4); MONOCYTES 9.8 % (2-11); PLATELET COUNT 180 10x3/uL (130-400); RBC 4.07 10x6/uL (4.20-6.10); WBC 9.6 10x3/uL (4.8-10.8)
[2017-08-13 06:54] LABS: ANION GAP 22.7 mmol/L (8-16); CALCIUM 10.1 mg/dL (8.5-10.1); CARBON DIOXIDE 21.7 mmol/L (21.0-32.0); CREATININE - SERUM 14.7 mg/dL (0.6-1.3); POTASSIUM - SERUM 5.4 mmol/L (3.5-5.1)
--- NOTE | 2017-08-13 08:00 | NUR ---
PATIENT IS ALERT/ORIENT X4. USING CALL LIGHT FOR NEEDS. SITTING UP IN WHEELCHAIR FOR BREAKFAST. NEEDS HELP OPENING ALL CARTONS. VOICES NO NEEDS AT THIS TIME.
[2017-08-13 08:53] VITALS: BP 168/82
--- NOTE | 2017-08-13 09:30 | NUR ---
DR ALEXANDER OFFICE CALLED IN REGARDS TO NURSING NOTE FOR BUMEX. THIS NURSE TALKED WITH LEÓN HUNT. STATED SHE WILL TAKE CARE OF ORDER FOR MEDICATION CHANGED THAT DR OROZCO PUT IN NURSING MESSAGE AND DID NOT SPECIFY DOSEAGE OF BUMEX
[2017-08-13 09:48] VITALS: Ht 190.5 cm; Wt 97.0 kg
--- NOTE | 2017-08-13 10:27 | NUR ---
PATIENT IN REHAB ROOM. WORKING WITH OCCUPATIONAL THERAPIST. DENIES ANY PAIN/DISC AT THIS TIME.
--- NOTE | 2017-08-13 11:50 | NUR ---
GLUCOSE LEVEL 112. NO SLDING SCALE INSULIN GIVEN
--- NOTE | 2017-08-13 16:50 | NUR ---
DIALYSIS CALLED. PATIENT TAKEN DOWN TO DAILYSIS CLINIC BY WHEELCHAIR. GLUCOSE LEVEL 192. PATIENT WILL NOT BE ABLE TO EAT SUPPER UNTIL HE GETS BACK FROM DIALYSIS. NO SLIDING SCALE INSULIN GIVEN. WILL RECHECK GLUCOSE LEVEL WHEN PATIENT RETURNS TO ROOM AFTER DIALYSIS.
--- NOTE | 2017-08-13 19:16 | NUR ---
PATIENT REMAINS IN DIALYSIS
--- NOTE | 2017-08-13 19:30 | NUR ---
PT SITTING ON SIDE OF BED. FAMILY AT BEDSIDE. ALERT & ORIENTED. FSBS ACHS. RESERVE LEFT ARM. TRACH. SOFTCOLLAR. STERI STRIPS BACK OF NECK. DIALYSIS M,W,F. RIGHT CHEST MIDLINE. LEFT ARM FISTULA BED IN LOWEST POSITION AND CALL LIGHT WITHIN REACH.
--- NOTE | 2017-08-13 20:30 | NUR ---
PT BACK FROM DIALYSIS. ALERT & ORIENTED. BED IN LOWEST POSITION AND CALL LIGHT WITHIN REACH.
--- NOTE | 2017-08-13 20:44 | NUR ---
PT. LYING IN BED WITH HOB UP AND IS ON HIS LEFT SIDE. SEVERAL VISITORS IN ROOM AT THIS TIME. CALL LIGHT IS WITHIN REACH FOR ANY NEEDS.
[2017-08-13 21:53] VITALS: BP 93/52
--- NOTE | 2017-08-14 | NUR ---
PT SITTING ON SIDE OF BED. RESTING QUIETLY. BED IN LOWEST POSITION AND CALL LIGHT WITHIN REACH.
--- NOTE | 2017-08-14 01:50 | NUR ---
PT SITTING UP IN BED RESTING. EYES CLOSED EVEN AND UNLABORED RESPIRATIONS NOTED WILL CONTINUE TO MONITOR
--- NOTE | 2017-08-14 05:45 | NUR ---
PT LYING IN BED. EYES CLOSED. RESP. EVEN. BED IN LOWEST POSITION AND CALL LIGHT WITHIN REACH.
[2017-08-14 07:30] LABS: BASOPHILS 0 % (0-2); EOSINOPHILS 0 % (0-7); HEMATOCRIT 38.9 % (42.0-54.0); HEMOGLOBIN 12.6 g/dL (13.5-17.5); IMMATURE GRANULOCYTES 0.1 % (0-5); LYMPHOCYTES 8.7 % (15-50); MCH 29.3 pg (26.0-34.0); MCHC 32.4 g/dL (31.0-37.0); MCV 90.5 fL (80.0-100.0); MEAN PLATELET VOLUME 11.8 fL (7.4-10.4); MONOCYTES 8.8 % (2-11); NEUTROPHILS 82.4 % (40-80); PLATELET COUNT 158 10x3/uL (130-400); RDW 16.8 % (11.5-14.5); WBC 8.8 10x3/uL (4.8-10.8)
[2017-08-14 08:19] LABS: ANION GAP 20.8 mmol/L (8-16); CREATININE - SERUM 11.5 mg/dL (0.6-1.3); POTASSIUM - SERUM 5.8 mmol/L (3.5-5.1)
[2017-08-14 08:21] LABS: PHOSPHOROUS 9.9 mg/dL (2.5-4.9)
--- NOTE | 2017-08-14 08:45 | NUR ---
PT RESTING IN BED WITH EYES OPEN CALL LIGHT IN REACH NO PROBLEMS WILL MONITER
--- NOTE | 2017-08-14 10:30 | NUR ---
RD follow up note-Chart Reviewed Pt without complaints this morning. Reports to have a good appetite. Consuming 75-100% of Renal ADA diet. MEDS: Bumetanide, sevelmar, Insulin, Dexamethasone. SKIN: WDP. WT stable. No changes at this time. Will continue to follow and provide nutritonal interventions as needed.
--- NOTE | 2017-08-14 12:24 | NUR ---
EATING LUNCH. DENIES NEEDS OR C/O.
[2017-08-14 19:58] VITALS: BP 120/76
--- NOTE | 2017-08-14 23:30 | NUR ---
PT SITTING ON SIDE OF BED. WATCHING TV. BED IN LOWEST POSIION AND CALL LIGHT WITHIN REACH.
--- NOTE | 2017-08-15 03:30 | NUR ---
PT IN BED WITH HOB UP FOR COMFORT. EYES CLOSED. RESPIRATIONS EVEN AND UNLABORED. BED IN LOWEST POSITION AND CALL LIGHT WITHIN REACH.
--- NOTE | 2017-08-15 04:52 | NUR ---
LAYING SIDEWAYS ON THE BED. NO S/S OF DISTRESS OBSERVED. STERI STRIPS TO BACK OF NECK WITH SOFT COLLAR ON. CALL LIGHT AND OVERBED TABLE IN REACH.
[2017-08-15 06:09] LABS: BASOPHILS 0 % (0-2); EOSINOPHILS 0 % (0-7); HEMATOCRIT 37.7 % (42.0-54.0); HEMOGLOBIN 12.1 g/dL (13.5-17.5); IMMATURE GRANULOCYTES 0.3 % (0-5); MCH 29.2 pg (26.0-34.0); MCHC 32.1 g/dL (31.0-37.0); MCV 90.8 fL (80.0-100.0); MEAN PLATELET VOLUME 10.7 fL (7.4-10.4); MONOCYTES 12.7 % (2-11); PLATELET COUNT 140 10x3/uL (130-400); RBC 4.15 10x6/uL (4.20-6.10); RDW 16.7 % (11.5-14.5); WBC 7.4 10x3/uL (4.8-10.8)
[2017-08-15 07:08] LABS: CALCIUM 9.9 mg/dL (8.5-10.1); CARBON DIOXIDE 20.5 mmol/L (21.0-32.0)
[2017-08-15 07:10] LABS: ANION GAP 23.6 mmol/L (8-16); CREATININE - SERUM 14.4 mg/dL (0.6-1.3); POTASSIUM - SERUM 6.1 mmol/L (3.5-5.1)
[2017-08-15 09:03] VITALS: BP 137/67
--- NOTE | 2017-08-15 18:03 | NUR ---
PT RESTING IN BED WITH EYES OPEN CALL LIGHT IN REACH NO PROBLEMS WILL MONITER
--- NOTE | 2017-08-15 19:50 | NUR ---
PT IS RESTING IN HIS WC IN HIS ROOM. ALERT AND ORIENTED X 3. DENIES ACUTE PAIN OR DISCOMFORT AT THIS TIME. NO NEEDS VOICED. C COLLAR IS ON AND INTACT. LEFT ARM FISTULA NOTED WITH GOOD BRUITT AND THRILL. RIGHT CHEST SUBCLAVIAN IV NOTED. CALL LIGHT AND BEDSIDE TABLE ARE WITHIN EASY REACH.
--- NOTE | 2017-08-15 21:00 | NUR ---
ATTEMPTED TO CALL DR GALLO TO GET DECADRON ORDERS. DR GALLO IS NOT CONSULTING DATABASE ADMINISTRATOR TONIGHT. WILL PASS ON TO DAY SHIFT TO CALL HIS OFFICE.
--- NOTE | 2017-08-15 22:15 | NUR ---
UP IN W/C, HAVING JUST RETURNED FROM BR. PRIMARY NURSE CURRENTLY ATTENDING TO PATIENT.
--- NOTE | 2017-08-15 22:24 | NUR ---
PT IS SITTING IN HIS WC IN HIS ROOM WATCHING TV. SPOUSE STATED THAT SHE NOTED HIS BUTTOCKS WERE EXCORIATED AND SHE PUT BUTT PASTE ON THEM. SHE STATED: "I CANT BELIEVE YOU LET THEM GET LIKE THAT." PT REFUSING TO LAY DOWN AT THIS TIME. I INFORMED THEM BOTH THAT IF HE WILL NOT GET THE PRESSURE OFF OF THEM, THEY WERE NOT GOING TO HEAL, AND THIS IS THE REASON HE HAS DEVELOPED THEM. PT STILL WILL NOT LAY DOWN IN BED AT THIS TIME.
[2017-08-15 23:51] VITALS: BP 159/87
--- NOTE | 2017-08-16 00:21 | NUR ---
PT IS RESTING IN BED WITH EYES CLOSED. WITH FEET HANGING OFF THE BED. PT REFUSES TO CHANGE POSITION.
--- NOTE | 2017-08-16 03:49 | NUR ---
PT RESTING IN BED WITH EYES CLOSED.
[2017-08-16 05:48] VITALS: BP 134/78
[2017-08-16 06:41] LABS: ANION GAP 21.9 mmol/L (8-16); CALCIUM 9.7 mg/dL (8.5-10.1); CARBON DIOXIDE 21.9 mmol/L (21.0-32.0); CREATININE - SERUM 10.8 mg/dL (0.6-1.3); POTASSIUM - SERUM 5.8 mmol/L (3.5-5.1)
--- NOTE | 2017-08-16 07:29 | NUR ---
SITTING UP IN BED RESTING. INSTRUCTED PT TO LAY ON SIDE INSTEAD OF SITTING UP ON BUTTOCKS DUE TO EXCORITATION. PT REFUSES TO GET OFF BUTTOCKS. WILL CONTINUE TO MONITOR
[2017-08-16 08:00] VITALS: BP 133/67
--- NOTE | 2017-08-16 09:30 | NUR ---
PAGED DR. GALLO TO DISCUSS TAPERING DOSE OF DECADRON, PER DR. LAWRENCE REQUEST
--- NOTE | 2017-08-16 10:50 | NUR ---
IN THERAPY GYM WITH PHYSICAL THERAPY. NO S.SX OF DISTRESS. WILL CONTINUE TO MONITOR
--- NOTE | 2017-08-16 11:45 | NUR ---
DR. GALLO RETURNED PAGE GAVE VERBAL ORDERS TO DC DECADRON AND START A MEDROL DOSE PACK. PUT IN ORDER FOR MEDROL DOSE PACK AND WILL START SOON IT ARRIVES ON FLOOR.
[2017-08-16 12:36] VITALS: BP 137/78
--- NOTE | 2017-08-16 14:07 | NUR ---
SITTING UP ON SIDE OF BED TALKING ON PHONE. OFFERS NO COMPLAINTS. CALL LIGHT WITHIN REACH. WILL CONTINUE TO MONITOR
--- NOTE | 2017-08-16 17:12 | NUR ---
SITTING UP ON SIDE OF BED EATING DINNER . OFFERS NO COMPLAINTS. CALL LIGHT IN REACH. WILL CONTINUE TO MONITOR
--- NOTE | 2017-08-16 17:32 | NUR ---
EATING SUPPER IN ROOM. DENIES NEEDS. CALL LIGHT IN REACH
[2017-08-16 18:18] VITALS: BP 123/72
--- NOTE | 2017-08-16 19:20 | NUR ---
PT IN BED WITH HOB UP FOR COMFORT. WATCHING TV. DIALYSIS M,W,F. FSBS ACHS. ALERT & ORIENTED. RESERVE LEFT ARM. TRACH. LEFT ARM FISTULA. RIGHT SUBCLAVIAN HEMOSPLIT. BED IN LOWEST POSITION AND CALL LIGHT WITHIN REACH.
--- NOTE | 2017-08-16 23:20 | NUR ---
PT IN BED WITH HOB UP FOR COMFORT. EYES CLOSED. CHEST RISING AND FALLING. BED IN LOWEST POSITION AND CALL LIGHT WITHIN REACH.
[2017-08-17 00:32] VITALS: BP 128/72
--- NOTE | 2017-08-17 01:10 | NUR ---
RESTING SEATED ON RIGHT SIDE OF BED LEANING AGAINST STACK OF PILLOWS ON HIS RIGHT SIDE. APPEARS COMFORTABLE, EYES CLOSED.
--- NOTE | 2017-08-17 04:10 | NUR ---
PT LYING IN BED. EYES CLOSED. RESPIRATIONS EVEN AND UNLABORED. BED IN LOWEST POSTION AND CALL LIGHT WITHIN REACH.
[2017-08-17 05:27] VITALS: BP 150/84
--- NOTE | 2017-08-17 07:40 | NUR ---
SITTING UP ON SIDE OF BED ALERT AND ORIENTED X4. OFFERS NO COMPLAINTS. CALL LIGHT WITHIN REACH. WILL CONTINUE TO MONITOR
--- NOTE | 2017-08-17 09:38 | NUR ---
SITTING UP ON SIDE OF BED WATCHING TV. OFFERS NO COMPLAINTS. CALL LIGHT WITHIN REACH. WILL CONTINUE TO MONITOR
[2017-08-17 11:53] VITALS: BP 131/77
--- NOTE | 2017-08-17 14:32 | NUR ---
SITTING UP ON SIDE OF BED WATCHING TV. DENIES PAIN. OFFERS NO COMPLAINTS. CALL LIGHT WITHIN REACH. WILL CONTINUE TO MONITOR
--- NOTE | 2017-08-17 18:21 | NUR ---
RESTING QUIETLY IN BED. DENIES NEEDS. CALL LIGHT IN REACH
[2017-08-17 18:48] VITALS: BP 146/83
--- NOTE | 2017-08-17 19:00 | NUR ---
PT SITTING ON SIDE OF BED. WATCHING TV. DIALYSIS M,W,F. FSBS ACHS. ALERT & ORIENTED. RESERVE LEFT ARM. TRACH. LEFT ARM FISTULA. RIGHT SUBCLAVIAN HEMOSPLIT. BED IN LOWEST POSITION AND CALL LIGHT WITHIN REACH.
[2017-08-17 23:27] VITALS: BP 134/69
--- NOTE | 2017-08-18 01:40 | NUR ---
IN BED, SEATED ON RIGHT SIDE OF BED, LEANING TO RIGHT ON STACK OF PILLOWS, EYES CLOSED. NO DISTRESS NOTED.
--- NOTE | 2017-08-18 05:40 | NUR ---
PT LYING IN BED. EYES CLOSED. CHEST RISING AND FALLING. BED IN LOWEST POSITION AND CALL LIGHT WITHIN REACH.
[2017-08-18 05:49] LABS: BASOPHILS 0 % (0-2); EOSINOPHILS 0 % (0-7); HEMOGLOBIN 11.7 g/dL (13.5-17.5); IMMATURE GRANULOCYTES 0.5 % (0-5); LYMPHOCYTES 4.2 % (15-50); MCHC 32.5 g/dL (31.0-37.0); MCV 89.3 fL (80.0-100.0); MEAN PLATELET VOLUME 11.9 fL (7.4-10.4); MONOCYTES 1.6 % (2-11); NEUTROPHILS 93.7 % (40-80); PLATELET COUNT 153 10x3/uL (130-400); RBC 4.03 10x6/uL (4.20-6.10); RDW 16.4 % (11.5-14.5); WBC 22.4 10x3/uL (4.8-10.8)
[2017-08-18 06:04] LABS: CALCIUM 9.6 mg/dL (8.5-10.1); CARBON DIOXIDE 18.6 mmol/L (21.0-32.0)
[2017-08-18 06:06] LABS: CREATININE - SERUM 15.7 mg/dL (0.6-1.3)
[2017-08-18 06:07] LABS: ANION GAP 25.5 mmol/L (8-16); POTASSIUM - SERUM 6.1 mmol/L (3.5-5.1)
[2017-08-18 06:21] VITALS: BP 119/73
--- NOTE | 2017-08-18 06:50 | NUR ---
Wound care consult: Pt has open area(s) below gluteal fold bilaterally, with no noted drainage. Staff has been using calmoseptine product PRN and buttocks are liberally coated at this time. Each area is 0.6 x 0.6, shallow and dry. Pts skin is loose and dry in this area and pt has mild body odor, unsure of last time to shower/bathe. Encouraged pt to drink fluids unless contraindicated, and change positions frequently for pressure redistribution. No orders at this time regarding wound care. Staff will continue to apply cream PRN and encourage pts adequate hydration, hygiene, and fluid intake unless otherwise indicated. Findings reported to GILBERT Siddiqi.
--- NOTE | 2017-08-18 08:00 | NUR ---
PATIENT IS ALERT/ORIENT X4. USING CALL LIGHT FOR NEEDS. SITTING UP ON THE SIDE OF THE BED TO EAT BREAKFAST. VOICES NO NEEDS AT THIS TIME.
--- NOTE | 2017-08-18 09:53 | NUR ---
PATIENT URINATED ABOUT 250CC BRIGHT RED URINE. PATIENT IS A RENAL DIALYSIS PATIENT. PAGED BROOK[place]N GRAY.
--- NOTE | 2017-08-18 10:15 | NUR ---
PRN ULTRUM GIVEN FOR LEFT KNEE PAIN PER PATIENT REQUEST.
--- NOTE | 2017-08-18 10:58 | NUR ---
BROOK[place]N GRAY, RETURNED PAGE. NEW ORDERS RECEIVED
--- NOTE | 2017-08-18 11:55 | NUR ---
GLUCOSE LEVEL 97. NO SLIDING SCALE INSULIN GIVEN
[2017-08-18 12:17] VITALS: BP 150/86
--- NOTE | 2017-08-18 16:45 | NUR ---
DAILYSIS CLINIC CALLED AND STATED THAT PATIENT WAS READY TO COME BACK TO UNIT. THIS NURSE WENT AND BROUGHT PATIENT BACK TO REHAB. GLUCOSE LEVEL 183. PATIENT REFUSED SLIDING SCALE INSULIN.
[2017-08-18 18:07] VITALS: BP 121/63
[2017-08-18 20:41] VITALS: BP 108/57
[2017-08-18 22:22] LABS: APPEARANCE HAZY (CLEAR); BILIRUBIN NEGATIVE (NEGATIVE); COLOR BROWN (YELLOW); GLUCOSE NEGATIVE (NEGATIVE); KETONE NEGATIVE (NEGATIVE); LEUKOCYTE ESTERASE 1+ (NEGATIVE); NITRITE NEGATIVE (NEGATIVE); PROTEIN 1+ mg/dL (NEGATIVE); SPECIFIC GRAVITY 1.015 (1.005-1.020); UROBILINOGEN NORMAL (NORMAL)
[2017-08-18 22:23] LABS: RED CELLS - URINE >50 /hpf (0-5)
[2017-08-18 22:24] LABS: BACTERIA MANY /hpf (NONE SEEN)
[2017-08-19] VITALS: BP 129/65
--- NOTE | 2017-08-19 | NUR ---
PT SITTING ON SIDE OF BED. ASSISTED PT WITH URINAL.
--- NOTE | 2017-08-19 04:00 | NUR ---
PT SITTING ON SIDE OF BED. WATCHING TV. BED LOW. CL IN REACH.
[2017-08-19 05:43] VITALS: BP 136/73
[2017-08-19 07:56] LABS: CALCIUM 8.9 mg/dL (8.5-10.1); CARBON DIOXIDE 20.2 mmol/L (21.0-32.0); CREATININE - SERUM 12.1 mg/dL (0.6-1.3)
[2017-08-19 08:00] LABS: ANION GAP 26.9 mmol/L (8-16); POTASSIUM - SERUM 6.1 mmol/L (3.5-5.1)
[2017-08-19 09:39] LABS: HEMOGLOBIN 11.7 g/dL (13.5-17.5); MCHC 32.5 g/dL (31.0-37.0); MCV 89.3 fL (80.0-100.0); PLATELET COUNT 110 10x3/uL (130-400); RBC 4.03 10x6/uL (4.20-6.10); RDW 16.4 % (11.5-14.5); WBC 20.5 10x3/uL (4.8-10.8)
[2017-08-19 09:40] LABS: BASOPHILS 0 % (0-2); EOSINOPHILS 0 % (0-7); IMMATURE GRANULOCYTES 0.3 % (0-5); LYMPHOCYTES 3.6 % (15-50); MONOCYTES 10.2 % (2-11); NEUTROPHILS 85.9 % (40-80)
--- NOTE | 2017-08-19 11:27 | NUR ---
Nutrition Follow Up: Pt is eating 97% meal avg on a renal ADA diet. +BM 08/19/17. Labs reviewed. Meds noted including Bumex. Rec continue current diet. RD following.
[2017-08-19 12:54] VITALS: BP 128/61
[2017-08-19 18:02] VITALS: BP 131/75
--- NOTE | 2017-08-19 18:07 | RHP ---
PATIENT: ISAIAS KEANE MEDICAL RECORD: [id number] ACCOUNT: [id number] LOCATION:[facility] D.1114 : 46 ADMISSION DATE: 08/12/17 REHABILITATION HISTORY AND PHYSICAL EXAMINATION POST ADMISSION PHYSICIAN EXAMINATION DATE OF ADMISSION: 08/12/2017. ADMITTING DIAGNOSES: Large ventral hernia and nucleus pulposus at C3-C4, spinal cord compression, and edema. HISTORY OF PRESENT ILLNESS: The patient is a 72-year-old gentleman admitted to inpatient rehab with spinal cord dysfunction, nontraumatic. He is status post ACDF of C3-C4 due to a large ventral herniated nucleus pulposus at C3-C4 with cord compression and edema. He was admitted to hospital on August 06. The patient has medical history of diabetes, congestive heart failure, hypertension, obstructive sleep apnea, and tracheostomy and Dr. Danielson follows him for his trache. Last week, the patient complained of numbness in both his hands, progressing and worsening over 2 weeks. It was thought to be possibly neuropathy; however, this week, the patient complained of weakness in his legs causing difficulty standing and walking. He denied any headache, visual changes or any other complaints. He had no known history of strokes in the past. He was admitted for weakness of lower extremities to rule out CVA and end-stage renal disease. Neurosurgery and pulmonary was consulted. MRI showed the C-spine, a large ventral herniated nucleus pulposus at C3-C4. He went to the OR for ACDF of C3-C4. He was seen by speech therapy and was placed on a regular diet. He did have some mild weakness of the lingual and labial musculature noted. He also received hemodialysis 3 times last week. We will have his trache taken out and recovering from recent surgery, but he is currently having issues with noted mucus plugs. Pulmonary has adjust his meds and trache care. He was living at home with his girlfriend, was independent with mobility and ADLs. He is currently set up from moderate to max assist for ADLs and moderate assist for mobility. He is progressing slowly with physical therapy. He was also noted getting some feeling back in his hand and rn iv therapy strengthening. He plans to return home, hopefully with his prior level of functioning or better. COMORBIDITIES: Include hypertension, renal dialysis, end-stage renal disease, weakness in his hands, CHF, COPD, obstructive sleep apnea, anemia and mild interstitial lung disease. PAST MEDICAL HISTORY: Significant for congestive heart failure, diabetes, hypertension, respiratory failure, osteoarthritis, end-stage renal disease, obstructive sleep apnea, and plasma cell dyscrasia. PAST SURGICAL HISTORY: Includes percutaneous gastrostomy. He has had a tracheostomy and ORIF of his lower extremity, a HemoSplit, and gallbladder surgery. ALLERGIES: No known drug allergies. CURRENT MEDICATIONS: Include [employer]. He is on sevelamer (Renagel) 2400 mg t.i.d. with meals. He is Isordil 20 mg b.i.d. He is on a glucose replacement protocol if necessary, Ultram 50 mg q. 6 hours. He is on a low resistant sliding scale insulin. He is on Mucinex 600 mg b.i.d., Decadron 4 mg q. 6, Bumex 2 mg b.i.d. He is on polyethylene glycol 17 grams in 8 ounces of HISTORY AND PHYSICAL [id number] FANNING,ISAIAS water daily. HABITS: No alcohol or tobacco use. FAMILY HISTORY: Noncontributory. SOCIAL HISTORY: The patient hopes to return back home and get back to his prior level of functioning. REVIEW OF SYSTEMS: GENERAL: He does complain of some weakness and fatigue, but is improving. HEENT: He denies cold, cough, or congestion. CARDIOVASCULAR: He denies chest pain. PHYSICAL EXAMINATION: VITAL SIGNS: Stable and afebrile. GENERAL: Well-developed gentleman in no acute distress, alert upon exam. HEENT: Normocephalic and atraumatic. Mucosa moist. NECK: Supple. No lymphadenopathy. LUNGS: Clear at this time. HEART: Regular rate and rhythm. ABDOMEN: Benign. EXTREMITIES: No clubbing, cyanosis or edema. NEUROLOGIC: He does have some weakness. LABORATORY DATA: His white count is 9.6, H&H of 12 and 37, and platelet count is 180. His sodium is 141, potassium is 5.4. BUN and creatinine of 155 and 14.7 and blood sugar is 150. ASSESSMENT: This is a 72-year-old gentleman admitted to the rehab with a working diagnosis of spinal cord dysfunction, status post surgery to his neck. The patient has potential to make improvement. We instituted the following multidisciplinary therapies including to, but not limited to physical, occupational, respiratory, speech, nutritional services, prosthetics and orthotics. Given his complex condition and risk for more complications, rehabilitation services cannot be provided at a lower level of care such as snf facility. PLAN: 1. Admit to [facility] rehab for intensive inpatient therapy to include the following disciplines: A. Physical therapy to improve gait, all transfer skills and bed mobility to a modified independent level. B. Occupational therapy to improve ready to a modified independent level. C. Case management to assist with discharge planning and placement options. D. Nutrition to assist with nutritional needs. E. Rehabilitation nursing to assist in monitoring the patient's underlying medical conditions and to assist with any type of bowel or bladder management. 2. The patient's current medication and medical care will be continued. 3. The patient will be placed on standard fall precautions. 4. The patient's estimated length of stay is approximately 7-10 days. 5. Discuss this patient during care team staff meeting this week. 6. We will go ahead and keep renal involved in this patient. He continues on hemodialysis and will follow up as needed. HISTORY AND PHYSICAL [id number] ISAIAS KEANE TRANSINT:[id number] Voice Confirmation ID: [id number] DOCUMENT ID: [id number] NEIL notes whether there has been none or any medical/functional change since admission: - No change since prescreen. NEIL attests patient continues to be appropriate for IRF: - Continues to be appropriate. ABDOUL BOGGS MD at 1807 CC: [id number] DICTATION DATE: 08/13/17905 FLOAT TENDER: 08/13/17 0939 ADM IN [facility] [address] [place] [address]
[2017-08-19 20:13] VITALS: BP 130/64
--- NOTE | 2017-08-19 20:13 | NUR ---
RECIEVED SITTING UP ON THE SIDE OF THE BED. PLEASANT AND COOPERATIVE. REQUESTED ASSISTANCE TO PUT HIS PENIS IN URINAL. ASSISTED WITH NO OUTPUT. FOUND SCRUBS AND UNDERWEAR IN BATHROOM TRASH. REMOVED SCRUBS AND PLACE IN DIRTY LINEN. UNDERWEAR HAD BLOOD ON THEM SO SOAKED IN COLD WATER. PT. STATES HE HAS KIDNEY STONES AND MD TO TAKE CARE OF THIS AFTER DISCHARGE. ALSO STATES RENAL DOCTOR AWARE. WILL INFORM OF SITUATION.
--- NOTE | 2017-08-19 21:50 | OP ---
PATIENT NAME: ISAIAS KEANE MEDICAL RECORD: [id number] :47 [facility] DATE:08/12/17 SURGEON: ZARA GALLO MD DATE OF OPERATION: 08/19/2017 PREOPERATIVE DIAGNOSIS: Disc herniation with spinal cord injury and compression at C3-C4. 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 PROCEDURE: Anterior cervical discectomy and fusion at C3-C4 with removal of osteophytes and decompression of spinal cord, Zavation anterior cervical plate and screws, 8 mm interbody cage with Biocell stem cell. DESCRIPTION OF TECHNIQUE: After induction of general endotracheal anesthesia, the patient was positioned supine on the operating table. Neck was prepped and draped in usual sterile fashion. Fluoroscopic x-ray and freer localized the C3-C4 interspace. A transverse skin incision was carried out at the C3-C4. The platysma was divided with Bovie cautery. Using blunt and sharp dissection with Metzenbaum scissors, I proceeded in an avascular plane medial to the carotid sheath. The C3-C4 interspace was identified with fluoroscopic x-ray and spinal needle. The longus colli muscles were elevated from the bodies of C3 and C4. Following this, a self-retaining retractor was placed deep to the longus colli muscles. [place] distracting pins were placed at the bodies of the C3 and C4. Disc space was incised with a #11 blade. A combination of curettes and pituitary rongeurs were used to remove the disc material from the C3-C4 interspace. Following this, there was an obvious hole discovered within the posterior longitudinal ligament, where large disc herniation was removed through this hole. The posterior longitudinal ligament was removed in its entirety with a #2 Cloward rongeurs. Following this, the dura was decompressed well. Meticulous hemostasis was maintained throughout the wound. The wound was irrigated with copious amounts of Ancef irrigant solution. An 8-mm interbody cage was placed in the disc space under distraction. Prior to this, it was filled with Biocell stem cells. Next, a 17-mm VIP plate and screws was used to span the C3-C4 interspace. Locking cams were tightened down over the screw heads. Meticulous hemostasis was maintained throughout the wound. The wound was irrigated with copious amounts of Ancef irrigant solution. The platysma and subdermal layer were closed with interrupted 3-0 Vicryl suture, the skin was reapproximated with Steri-Strips and benzoin. A sterile dressing was applied to the wound. The patient was awakened in good condition and taken to the recovery. All counts were reported as correct. Estimated blood loss was minimal. TRANSINT:[id number] Voice Confirmation ID: [id number] DOCUMENT ID: [id number] ZARA GALLO MD at 2150 CC: [id number] DICTATION DATE: 08/19/17 1357 REAL ESTATE ACCOUNT EXECUTIVE: 08/19/17 1741 ADM IN [facility] [address] [place] [id number]
[2017-08-20 00:06] VITALS: BP 130/64
[2017-08-20 06:53] VITALS: BP 146/76
--- NOTE | 2017-08-20 08:20 | NUR ---
PT AM MEDS ADMINISTERED. DR LAWRENCE IN TO SEE PT. PT DENIES NEEDS. WCTM.
--- NOTE | 2017-08-20 12:30 | NUR ---
PT SITTNG UP IN WC EATING LUNCH, VAMSHI NEEDS. WCTM.
[2017-08-20 13:17] VITALS: BP 122/50
--- NOTE | 2017-08-20 15:44 | NUR ---
PT WAS REFUSING DIALYSIS. GILBERT BURGER TALKED WITH PT AND PT DECIDED TO GO TO DIALYSIS. PT WENT VIA WC TO DIALYSIS.
[2017-08-20 18:38] VITALS: BP 143/53
[2017-08-20 19:20] VITALS: BP 146/74
[2017-08-20 19:32] VITALS: BP 146/74
--- NOTE | 2017-08-20 19:32 | NUR ---
UP IN W/C HAVING HIS HAIR WASHED BY VISITOR. GIRLFRIEND IN THE ROOM AT BEDSIDE. PLEASANT AND COOPERATIVE. DENIES ANY PAIN. STATES HE HAD DIAHRREA TODAY. EXPLAINED HE HAD STARTED A NEW ANTIBIOTIC YESTERDAY AND THAT IS A POSSIBLE SIDE EFFECT. VOICED UNDERSTANDING.
--- NOTE | 2017-08-20 21:39 | NUR ---
SITTING ON THE SIDE OF THE BED WITH EYES CLOSED. EASILY AROUSES WITH VERBAL STIMULI. IVY SPLIT DRESSING CHANGED USEING STERILE TECHNIQUE. DENIES ANY PAIN OR ANY MORE DIAHRREA. PLEASANT AND COOPERATIVE.
[2017-08-21] VITALS: BP 101/58
--- NOTE | 2017-08-21 02:22 | NUR ---
RESTING IN BED WITH EYES CLOSED. LAYING ON LEFT SIDE WITH FEET OFF SIDE OF BED. USUALLY SLEEPS UPRIGHT SITTING ON SIDE OF BED. NO S/S OF DISTRESS OBSERVED. TV ON.
[2017-08-21 05:51] VITALS: BP 137/77
--- NOTE | 2017-08-21 06:11 | NUR ---
SITTING UP ON SIDE OF BED. NO S/S 0F DISTRESS OBSERVED. REFUSED TO ALLOW BLOOD DRAW THIS AM. SPOKE WITH PT AND HE AGREED TO HAVE LAB DRAW HIS BLOOD. DENIES ANY PAIN. EXCITED ABOUT GOING HOME TODAY. CALL LIGHT IN REACH.
[2017-08-21 06:15] LABS: ANION GAP 24.6 mmol/L (8-16); CALCIUM 9.6 mg/dL (8.5-10.1); CARBON DIOXIDE 19.7 mmol/L (21.0-32.0); CREATININE - SERUM 11.1 mg/dL (0.6-1.3); POTASSIUM - SERUM 5.3 mmol/L (3.5-5.1)
[2017-08-21] MEDS ORDERED: FLORINEF 0.1 M0.1 MG PO (08:58)
[2017-08-21] MEDS ORDERED: PEPCID20 MG PO (08:58)
[2017-08-21] MEDS ORDERED: BUMEX2 MG PO (08:59)
--- NOTE | 2017-08-21 10:02 | NUR ---
PATIENT DISCHRGING HOME WITH GIRLFRIEND. HE WILL CONTINUE SAME HD DAYS AND TIME, M-W-F @ 6:30. NO NEW DME NEEDED PER PATIENT. DR. GALLO 09/22/17 @ 1:00, DR. CALDWELL 11/07/17 @ 2:30, PATIENT WILL CALL WITH THE NAME OF HOME HEALTH WHEN HE GETS HOME. PATIENT CHOICE FORM FOR HOME HEALTH AND [facility] FORM SIGNED, EXPLIANED AND FILED IN CHART.
--- NOTE | 2017-08-21 10:25 | NUR ---
PT DISCHARGE INSTRUCTIONS REVIEWED. DISCHARGE MEDS REVIEWED. PT STATES NO QUESTIONS. PT TO RESUME DIALYSIS OUPATIENT SCHEDULE.
--- NOTE | 2017-08-22 14:18 | NUR ---
SPOKE WITH PATIENT GIRLFRIEND AND [facility] WILL FOLLOW WITH PATIENT AT HOME FOR THEREAPY. GIRLFRIEND # [phone]. ORDERS HAVE BEEN FAXED TO [facility]
== END 2017-08-21 10:43 | disposition home health service (06) | DRG 551 ==
LOC: D.REHAB 17:01
PROVIDERS: Internal Medicine Nephrology; ADMIT Emergency Medicine
DX: M50.21 Other cervical disc displacement, high cervical region (principal); N18.6 End stage renal disease; G95.20 Unspecified cord compression; I13.2 Hypertensive heart and chronic kidney disease with heart failure and with stage 5 chronic kidney disease, or end stage renal disease; J84.9 Interstitial pulmonary disease, unspecified; N17.8 Other acute kidney failure; C90.30 Solitary plasmacytoma not having achieved remission; R60.9 Edema, unspecified; E11.22 Type 2 diabetes mellitus with diabetic chronic kidney disease; I50.9 Heart failure, unspecified; Z99.2 Dependence on renal dialysis; R53.1 Weakness; J44.9 Chronic obstructive pulmonary disease, unspecified; D64.9 Anemia, unspecified; G47.33 Obstructive sleep apnea (adult) (pediatric)

== ENCOUNTER → 2018-01-13 10:45 | Outpatient (CLI) | payer MEDICARE ==
[2017-08-13 09:48] VITALS: BMI 27.4
[~2018-01-13 10:45] MED LIST changes: +FLORINEF 0.1 M0.1 MG PO; +PEPCID20 MG PO
== END | disposition home or self-care (01) ==
LOC: D.US 10:45
DX: M79.605 Pain in left leg (principal); M79.604 Pain in right leg

== ENCOUNTER 2018-03-16 10:13 | Emergency (ER) | payer MEDICARE ==
[2017-08-13 09:48] VITALS: BMI 27.4
[2018-03-16 11:15] LABS: BASOPHILS 0.1 % (0-2); EOSINOPHILS 0 % (0-7); HEMATOCRIT 35.6 % (42.0-54.0); HEMOGLOBIN 10.4 g/dL (13.5-17.5); IMMATURE GRANULOCYTES 0.5 % (0-5); MCH 29.5 pg (26.0-34.0); MCHC 29.2 g/dL (31.0-37.0); MCV 101.1 fL (80.0-100.0); MEAN PLATELET VOLUME 10.6 fL (7.4-10.4); MONOCYTES 9.4 % (2-11); PLATELET COUNT 161 10x3/uL (130-400); RBC 3.52 10x6/uL (4.20-6.10); RDW 17.7 % (11.5-14.5); WBC 8.4 10x3/uL (4.8-10.8)
[2018-03-16 11:34] LABS: ALBUMIN 2.9 g/dL (3.4-5.0); ANION GAP 10.3 mmol/L (8-16); BILIRUBIN - TOTAL 0.5 mg/dL (0.2-1.3); CALCIUM 8.6 mg/dL (8.5-10.1); POTASSIUM - SERUM 4.3 mmol/L (3.5-5.1); PROTEIN - SERUM 8.1 g/dL (6.4-8.2)
[2018-03-16 12:15] LABS: MAGNESIUM - SERUM 2.1 mg/dL (1.8-2.4); TROPONIN-I 0.132 ng/mL (0.000-0.060)
== END 2018-03-16 14:53 | disposition home or self-care (01) ==
LOC: D.ER 10:13
PROVIDERS: Emergency Medicine
DX: R53.1 Weakness (principal); N18.6 End stage renal disease; D64.9 Anemia, unspecified; I48.91 Unspecified atrial fibrillation